=== PATIENT | female | born 1960 | race American Indian/Alaskan Native ===

== ENCOUNTER 2021-11-09 10:51 | Day surgery (SDC) | payer BC, MEDICARE ==
[2021-11-09] MEDS ORDERED: HEPARIN/NS 5000 UNIT/500ML 500 ML IR ONE (12:14)
[2021-11-09] MEDS ORDERED: HEPARIN 10,000 UNITS/10 ML VIAL ONE (12:15)
[2021-11-09] MEDS ORDERED: LIDOCAINE (2%) 20 MG/1 ML VIAL 20 ML MDV INFILTRATI ONE (12:15)
[2021-11-09] MEDS ORDERED: SODIUM CHLORIDE 0.9% 250ML 250 ML ONE (12:54)
[2021-11-09] MEDS: MIDAZOLAM 2 MG/2 ML INJ ONE ×2 (13:04→13:15)
[2021-11-09] MEDS: fentaNYL 100 MCG/2 ML INJ ONE ×2 (13:04→13:15)
--- NOTE | 2021-11-09 13:26 | Post Operative Note ---
Date of procedure: 11/09/21 Pre-op diagnosis: ESRD Post-op diagnosis: same Procedure: Left IJ Permcath Exchange with Fibrin Sheath Disruption Anesthesia: MAC Surgeon: STEPHEN QUACH Estimated blood loss: minimal Pathology: none Condition: stable Disposition: PACU
--- NOTE | 2021-11-09 13:28 | Short Stay Summary ---
Short Stay Documentation Date of service: 11/09/21 - History H&P: dictated Past Medical History: ESRD, hypertension - Allergies and Medications Current Medications: Allergies lisinopril Allergy (Verified 11/09/21 11:11) Angioedema Home Medications Medication Instructions Recorded Confirmed Last Taken Type Cyclobenzaprine HCl 10 mg PO QHS 11/09/21 11/09/21 11/08/21 History Furosemide [Lasix TAB] 80 mg PO PRN 11/09/21 11/09/21 11/08/21 History HYDROcodone/APAP 5-325 [Strawberry 1 each PO Q12H PRN 11/09/21 11/09/21 Unknown History 5/325] Hydroxychloroquine [Plaquenil] 200 mg PO QDAY 11/09/21 11/09/21 11/08/21 History Metoprolol [Lopressor TAB] 75 mg PO BID 11/09/21 11/09/21 11/09/21 History NIFEdipine XL [Procardia Xl] 60 mg PO Q12HR 11/09/21 11/09/21 11/08/21 History Nortriptyline [Pamelor] 10 mg PO QHS 11/09/21 11/09/21 11/08/21 History Sertraline [Zoloft] 50 mg PO QDAY 11/09/21 11/09/21 11/08/21 History Sodium Bicarbonate 650 mg PO TID 11/09/21 11/09/21 11/08/21 History Spironolactone [Aldactone] 50 mg PO QDAY 11/09/21 11/09/21 11/08/21 History Vit B Comp C/Folic Acid/Vit D3 1 each PO DAILY 11/09/21 11/09/21 11/08/21 History [Dialyvite 800 Plus D Wafer] cloNIDine [Catapres] 0.1 mg PO PRN PRN 11/09/21 11/09/21 11/08/21 History prednisoLONE [Millipred] 5 mg PO QDAY 11/09/21 11/09/21 11/08/21 History - Physical exam General appearance: no acute distress HEENT: Atraumatic Lungs: Normal air movement Heart: Regular rate Extremities: no ischemia - Hospital course Hospital course: the patient was taken to the cath lab manager and had a left IJ permcath exchange performed. please refer to the operative note concerning details of the procedure. the patient tolerated the procedure well and was discharged home in stable condition. - Disposition Condition at discharge: Stable Disposition: 01 HOME / SELF CARE / HOMELESS Short Stay Discharge Plan Follow up with: LADARIUS RICHARDS [Other] - 7 Days
[2021-11-09 14:16] VITALS: BP 139/62
--- NOTE | 2021-11-09 14:21 | Operative Report ---
DATE OF SURGERY: 11/09/2021 STAFF SURGEON: Nils Torre M.D. PREOPERATIVE DIAGNOSIS: End-stage renal disease with malfunctioning catheter. POSTOPERATIVE DIAGNOSIS: End-stage renal disease with malfunctioning catheter. PROCEDURE PERFORMED: Left IJ PermCath exchange with fiber sheath disruption. COMPLICATIONS: None. ESTIMATED BLOOD LOSS: Less than 10 mL ANESTHESIA: Local MAC. INDICATIONS FOR PROCEDURE: This is a 61-year-old female with end-stage renal disease, on hemodialysis via left IJ PermCath that has recently been nonfunctioning at her dialysis center. Therefore, the patient was scheduled to undergo evaluation and exchanged for a catheter. The patient was explained the risks, benefits and alternative of procedure, expressed understanding and wished to proceed. DESCRIPTION OF PROCEDURE: The appropriate consent was obtained, the patient was brought back to the soap slabber and placed on the table in supine position. The left neck and chest were prepped and draped in the usual sterile fashion. Appropriate timeout was performed indicating correct patient, procedure, and site of procedure. We then began the intervention by infiltrating the catheter exit site with 1% lidocaine. The catheter exit site was freed with blunt dissection and the catheter was retracted several centimeters and a diagnostic venogram was performed demonstrating a fibrin sheath within the SVC. We then proceeded to place a Cherrishson wire through the existing catheter into the IVC. Catheter was removed and discarded. The wire was then wiped down with 3 swipes of Betadine-soaked gauze and then 3 spots with saline-soaked gauze. We then proceeded to take a 14 x 40 mm balloon and placed it across the lesion of interest insufflated to profile to disrupt the fibrin sheath. This was then taken down and removed. A 31 cm straight PermCath was then placed over the wire with the tip of the catheter within the IVC, wire and dilator were removed. Both lumens chica blood appropriately, were flushed with heparinized saline. Appropriate amount of heparin was placed in each port. Catheter was then sutured in place with a 3-0 nylon suture. Appropriate dressing was placed. The patient tolerated the procedure well, emerged from the conscious sedation was sent to recovery in stable condition. TID: [id number] RECEIPT: [id number] MANGO/JOSE L
== END 2021-11-09 14:30 | disposition home or self-care (01) ==
LOC: CATHLABREC 10:51
PROVIDERS: ATTEND Surgery Vascular Surgery
DX: T82.898A Other specified complication of vascular prosthetic devices, implants and grafts, initial encounter (principal); I12.0 Hypertensive chronic kidney disease with stage 5 chronic kidney disease or end stage renal disease; N18.6 End stage renal disease; M19.90 Unspecified osteoarthritis, unspecified site; Z88.8 Allergy status to other drugs, medicaments and biological substances; Z79.899 Other long term (current) drug therapy; Z90.49 Acquired absence of other specified parts of digestive tract; Z90.721 Acquired absence of ovaries, unilateral; Y82.8 Other medical devices associated with adverse incidents; Y92.89 Other specified places as the place of occurrence of the external cause
CPT/HCPCS: 36415; 36581; 77001; 84132; C1725; C1750; J1644; J2250; J3010; J3490; J7050; 37248; Q9967